=== PATIENT | female | born 1960 | race Caucasian/White ===

== ENCOUNTER → 2018-02-03 | Outpatient (REF) | payer BC ==
[2018-02-03 15:14] LABS: INFLUENZA A AMPLIFICATION POSITIVE (NEGATIVE); INFLUENZA B AMPLIFICATION NEGATIVE (NEGATIVE)
== END ==
LOC: M LAB REF 14:33
DX: J11.1 Influenza due to unidentified influenza virus with other respiratory manifestations (principal)
CPT/HCPCS: 87502